=== PATIENT | female | born 1990 | race Two or more races ===

== ENCOUNTER 2022-07-24 02:27 | Inpatient (IN) | payer OTHER ==
[~2022-07-24] VITALS: Ht 167.6 cm; Wt 74.4 kg
[2022-07-24] MEDS ORDERED: PRENATAL TABLE1 EAC1 PO (02:34)
[2022-07-24] MEDS ORDERED: COLACE100 MG PO (02:34)
== END 2022-07-27 14:25 | disposition home or self-care (01) | DRG 807 ==
LOC: OBS/DEL 02:27 → LDR 14:23 → OB/GYN 14:23
PROVIDERS: ADMIT Obstetrics & Gynecology; ATTEND Obstetrics & Gynecology
PROC: 4A1HXCZ Monitoring of Products of Conception, Cardiac Rate, External Approach (ICD-10-PCS; 2022-07-24)
PROC: 10E0XZZ Delivery of Products of Conception, External Approach (ICD-10-PCS; principal; 2022-07-25)
PROC: 0KQM0ZZ Repair Perineum Muscle, Open Approach (ICD-10-PCS; 2022-07-25)
DX: O70.1 Second degree perineal laceration during delivery (principal); Z37.0 Single live birth; Z3A.38 38 weeks gestation of pregnancy; Z20.822 Contact with and (suspected) exposure to COVID-19